=== PATIENT | female | born 1960 | race Caucasian/White ===

== ENCOUNTER 2018-02-03 17:24 | Inpatient (IN) | payer OTHER ==
[~2018-02-03] VITALS: Ht 165.1 cm; Wt 80.5 kg
[~2018-02-03 17:24] MED LIST: ADVA250A INH; DIAZ5 PO; LEVO.1 PO; LISI-515 PO; LORA-400 PO; MONT10TA2 PO; PRIL20TA2; SIMV40TA PO; VENTAER INH; VOLT100T
[2018-02-03 22:24] VITALS: BP 148/82; PULSE 100; RESP 16; TEMP 98.9; O2SAT 95
[2018-02-03] MEDS ORDERED: MAGNESIUM HYDROXIDE SUSP 30 ML CUP PO PRN (22:45)
[2018-02-03] MEDS ORDERED: LACTULOSE SYRUP 20 GM/30 ML CUP PO PRN (22:45)
[2018-02-03] MEDS ORDERED: DIAZEPAM 5 MG TAB PO PRN (22:45)
[2018-02-03] MEDS ORDERED: ALBUTEROL SULFATE 90 MCG/ACT HFA 8 GM INHALER INH PRN (22:45)
[2018-02-03] MEDS ORDERED: MORPHINE SULFATE 2 MG/ML INJ IV PUSH PRN (22:45)
[2018-02-03] MEDS ORDERED: NALOXONE HCL 0.4 MG/ML AMP IV PUSH PRN (22:45)
[2018-02-03] MEDS ORDERED: SENNOSIDES 8.6 MG TAB PO PRN (22:45)
[2018-02-03] MEDS ORDERED: BISACODYL 10 MG SUPP RECTAL PRN (22:45)
[2018-02-03] MEDS ORDERED: ONDANSETRON HCL 4 MG/2 ML VIAL IVP PRN (22:45)
[2018-02-03] MEDS ORDERED: SODIUM CHLORIDE 0.9% FLUSH 10 ML FLUSH IV FLUSH PRN (22:45)
[2018-02-03 23:00] VITALS: PULSE 100
--- NOTE | 2018-02-03 23:00 | HHI.HP ---
HPI Service CP Hospitalists Primary Care Physician Unknown Admission Diagnosis colitis GI bleed ,arrhythmia Chief Complaint: abdominal pain diarrhea blood stool Travel History International Travel<30 Days: No Contact w/Intl Traveler <30 Da: No Traveled to Known Affected Are: No History of Present Illness 58-year-old female with history of hypertension and COPD presents emergency department for evaluation of acute onset lower abdominal pain and cramping this morning with associated hematochezia. Patient has been nauseous and vomiting as well. Pain is moderate in severity, worse prior to bowel movement. Patient denies any history of colitis or diverticulitis. No history of trauma. Denies any fever or chills. Patient does take aspirin daily, no other anticoagulation therapy. She has no other symptoms to report at this time. Patient was noted to have significant irregular heart rate ? atrail fib started in er in [place] on Cardiazem bolus and then drip which converted to sinus ,alos had CT scan showed thick transverse colon consistent with colitis. Patient sent for admission. Patient has been feeling good up to today. Review of Systems Gastrointestinal: COMPLAINS OF: Abdominal pain, Black stools, Bloody stools, BRB per rectum, Diarrhea, Nausea Past Family Social History Past Medical History copd,hyperlipidemia,hypertension,hypothyroid Past Surgical History urethral repair Reported Medications valium 5mg tid,claritin,[id number] ventolin 2puff q 4 h advair diskis 250/50 bid simvastatin 40 volteran Allergies: Coded Allergies: Penicillins (Verified Allergy, Unknown, Shortness of Breath, 02/03/18) cephapirin (Verified Allergy, Unknown, Hives, 02/03/18) doxycycline (Verified Allergy, Unknown, Hives, 02/03/18) iodine (Verified Allergy, Unknown, 02/03/18) niacin (Verified Allergy, Unknown, Rash, 02/03/18) Social History NS,ND Physical Exam Vital Signs Vital Signs Date Time Temp Pulse Resp B/P (MAP) Pulse Ox O2 Delivery O2 Flow Rate FiO2 02/03/18 22:24 98.9 100 16 148/82 (104) 95 Physical Exam GENERAL: This is a well-nourished, well-developed patient, in no apparent distress. SKIN: No rashes, ecchymoses or lesions. Cool and dry. HEAD: Atraumatic. Normocephalic. No temporal or scalp tenderness. EYES: Pupils equal round and reactive. Extraocular motions intact. No scleral icterus. No injection or drainage. ENT: Nose without bleeding, purulent drainage or septal hematoma. Throat without erythema, tonsillar hypertrophy or exudate. Uvula midline. Airway patent. NECK: Trachea midline. No JVD or lymphadenopathy. Supple, nontender, no meningeal signs. CARDIOVASCULAR: Regular rate and rhythm without murmurs, gallops, or rubs. RESPIRATORY: Clear to auscultation. Breath sounds equal bilaterally. No wheezes , rales, or rhonchi. GASTROINTESTINAL: Abdomen soft, mild-tender, nondistended. No hepato- splenomegaly, or palpable masses. No guarding. MUSCULOSKELETAL: Extremities without clubbing, cyanosis, or edema. No joint tenderness, effusion, or edema noted. No calf tenderness. Negative Homans sign bilaterally. NEUROLOGICAL: Awake and alert. Cranial nerves II through XII intact. Motor and sensory grossly within normal limits. Five out of 5 muscle strength in all muscle groups. Normal speech. Laboratory reviewed from ER no acute changes some elevation WBC Imaging CT -thick transverse colon suggesting colitis ?renal cyst Course in er in [place] had rapid heart rate ?a fib vs tachycardia started on cardiazem bolus then drip now sinus Caprini VTE Risk Assessment Caprini VTE Risk Assessment: Mod/High Risk (score >= 2) Caprini Risk Assessment Model Point Value = 1 Point Value = 2 Point Value = 3 Point Value = 5 Age 41-60 Minor surgery BMI > 25 kg/m2 Swollen legs Varicose veins or History of unexplained or recurrent spontaneous Oral contraceptives or hormone replacement Sepsis (< 1 month) Serious lung disease, including pneumonia (< 1 month) Abnormal pulmonary function Acute myocardial infarction Congestive heart failure (< 1 month) History of inflammatory bowel disease Medical patient at bed rest Age 61-74 Arthroscopic surgery Major open surgery (> 45 min) Laparoscopic surgery (> 45 min) Malignancy Confined to bed (> 72 hours) Immobilizing plaster cast Central venous access Age >= 75 History of VTE Family history of VTE Factor V Leiden Prothrombin [id number] Lupus anticoagulant Anticardiolipin antibodies Elevated serum homocysteine Heparin-induced thrombocytopenia Other congenital or acquired thrombophilia Stroke (< 1 month) Elective arthroplasty Hip, pelvis, or leg fracture Acute spinal cord injury (< 1 month) Prophylaxis Regimen Total Risk Factor Score Risk Level Prophylaxis Regimen 0-1 Low Early ambulation 2 Moderate Order ONE of the following: *Sequential Compression Device (SCD) *Heparin 5000 units SQ BID 3-4 Higher Order ONE of the following medications: *Heparin 5000 units SQ TID *Enoxaparin/Lovenox 40 mg SQ daily (WT < 150 kg, CrCl > 30 mL/min) *Enoxaparin/Lovenox 30 mg SQ daily (WT < 150 kg, CrCl > 10-29 mL/min) *Enoxaparin/Lovenox 30 mg SQ BID (WT < 150 kg, CrCl > 30 mL/min) AND/OR *Sequential Compression Device (SCD) 5 or more Highest Order ONE of the following medications: *Heparin 5000 units SQ TID (Preferred with Epidurals) *Enoxaparin/Lovenox 40 mg SQ daily (WT < 150 kg, CrCl > 30 mL/min) *Enoxaparin/Lovenox 30 mg SQ daily (WT < 150 kg, CrCl > 10-29 mL/min) *Enoxaparin/Lovenox 30 mg SQ BID (WT < 150 kg, CrCl > 30 mL/min) AND *Sequential Compression Device (SCD) Assessment and Plan Problem List: (1) Abdominal pain ICD Codes: R10.9 - Unspecified abdominal pain Plan: CT suggests colitis with slight elevation WBC start levaquin GI consult IV fluid NPO for now (2) Blood in stool ICD Codes: K92.1 - Melena Status: Acute Plan: IV protonix follow cbc GI consult (3) Arrhythmia ICD Codes: I49.9 - Cardiac arrhythmia, unspecified Plan: will monitor now in sinus off cardiazem (4) COPD (chronic obstructive pulmonary disease) ICD Codes: J44.9 - Chronic obstructive pulmonary disease, unspecified Plan: continue home meds (5) Hypertension ICD Codes: I10 - Essential (primary) hypertension Plan: continue home meds Assessment and Plan further plan as case develops Code Status full Discussed Condition With patient Physician Certification 2 Midnight Certification Type: Admission for Inpatient Services Order for Inpatient Services The services are ordered in accordance with Medicare regulations or non- Medicare payer requirements, as applicable. In the case of services not specified as inpatient-only, they are appropriately provided as inpatient services in accordance with the 2-midnight benchmark. Estimated LOS (days): 3 3 days is the estimated time the patient will need to remain in the hospital, assuming treatment plan goals are met and no additional complications. Post-Hospital Plan: Not yet determined Fox Ivory MD Feb 03, 2018 23:00
[2018-02-03] MEDS: ACETAMINOPHEN 325 MG TAB PO PRN (23:25)
[2018-02-03] MEDS: PANTOPRAZOLE SODIUM 40 MG VIAL IV PUSH SCH (23:27)
[2018-02-03] MEDS: LEVOFLOXACIN 500 MG PREMIX INJ 100 ML IV SCH (23:33)
[2018-02-03] MEDS: SODIUM CHLOR 0.45% 1000 ML INJ 1,000 ML IV SCH (23:33)
[2018-02-03 23:41] VITALS: BP 142/77; PULSE 99; RESP 16; O2SAT 94
[2018-02-04] VITALS (29 sets, daily range): BP systolic 122–154; BP diastolic 45–98; PULSE 73–102; RESP 16–19; TEMP 98.5–99.4; O2SAT 95–99
[2018-02-04] MEDS: ACETAMINOPHEN 325 MG TAB PO PRN ×2 (03:53→09:03)
[2018-02-04] MEDS: LEVOTHYROXINE SODIUM 100 MCG TAB PO SCH (06:02)
[2018-02-04 07:07] LABS: ALBUMIN 3.5 GM/DL (3.4-5.0); AST (GOT) 10 U/L (15-37); BICARBONATE 26.7 MEQ/L (21.0-32.0); BLOOD UREA NITROGEN 8 MG/DL (7-18); CALCIUM 8.3 MG/DL (8.5-10.1); CHLORIDE 108 MEQ/L (98-107); GLOMERULAR FILTRATION RATE 86 ML/MIN (>89); GLUCOSE,RANDOM 122 MG/DL (74-106); SODIUM (NA) 142 MEQ/L (136-145)
[2018-02-04 07:09] LABS: AUTOMATED NEUTROPHIL # 8.6 TH/MM3 (1.8-7.7); BASOPHIL % 0.3 % (0.0-2.0); EOSINOPHIL # 0.1 TH/MM3 (0-0.4); EOSINOPHIL % 1.1 % (0.0-4.0); HEMOGLOBIN 13.1 GM/DL (11.6-15.3); LYMPH % 12.6 % (9.0-44.0); LYMPHOCYTE # 1.3 TH/MM3 (1.0-4.8); MEAN CORPUSCULAR HEMOGLOBIN 30.6 PG (27.0-34.0); MEAN CORPUSCULAR HGB CONC 33.6 % (32.0-36.0); MEAN PLATELET VOLUME 11.2 FL (7.0-11.0); MONO % 6.2 % (0.0-8.0); MONOCYTE # 0.7 TH/MM3 (0-0.9); NEUT % 79.8 % (16.0-70.0); PLATELET COUNT 191 TH/MM3 (150-450); RED BLOOD COUNT 4.29 MIL/MM3 (4.00-5.30); RED CELL DISTRIBUTION WIDTH 13.6 % (11.6-17.2); WHITE BLOOD COUNT 10.7 TH/MM3 (4.0-11.0)
[2018-02-04 07:18] LABS: ALKALINE PHOSPHATASE 47 U/L (45-117); ALT (GPT) 19 U/L (10-53); TOTAL BILIRUBIN ADULT 0.8 MG/DL (0.2-1.0); TOTAL PROTEIN 6.6 GM/DL (6.4-8.2)
[2018-02-04] MEDS: DOCUSATE SODIUM 50 MG/SENNA 8.6 MG TAB PO SCH ×2 (09:00→21:00)
[2018-02-04] MEDS: LISINOPRIL 20 MG TAB PO SCH (09:03)
[2018-02-04] MEDS: BUDESONIDE-FORMOTEROL 160/4.5 MCG INHALER INH SCH (09:03)
[2018-02-04] MEDS: SODIUM CHLORIDE 0.9% FLUSH 10 ML FLUSH IV FLUSH SCH ×2 (09:03→21:51)
--- NOTE | 2018-02-04 10:26 | PD.CONS ---
HPI History of Present Illness This is a 58 year old F with PMH significant for COPD who presented to [facility] in [place] with complaints of lower abdominal pain, nausea, vomiting, and hematochezia. Pt reports symptoms began early Sunday morning, went out to eat Sunday night had shrimp, woke up at 3 am with severe lower abdominal pain and the urgency to have a BM. States started having diarrhea and shortly after also began vomiting. The diarrhea became increasingly bloody to the point where it was mostly blood she was passing, last episode was around 4 am this morning. She is unsure of hematemesis or coffee ground emesis, states she was vomiting in the dark so did not see it. Last vomited yesterday afternoon, currently on nausea medication which seems to be helping. Of note, states had a 6 hr occurrence of nausea, vomiting and diarrhea 3 weeks ago after eating shrimp, was not seen by doctor for this. At present her only complaint is intermittent abdominal cramping with excessive flatus. Denies recent weight loss, history of GIB, blood thinners, recent antibiotics, recent travel, history of C. Diff. Does admit to running low grade fevers at home with some chills. Rare ETOH. Denies smoking. Last EGD was 25-30 years ago, indication was dysphagia she was later found to have a nodular thyroid which she was told is the cause. Still with some dysphagia but states chronic and endocrinology is following. Last colonoscopy was 5-7 years ago and states normal exam. (Amrita Agee) PFSH Past Medical History COPD Urethra diverticulum Past Surgical History EGD Colonoscopy Multiple urethral surgeries Bladder sling (Amrita Agee) Coded Allergies: Penicillins (Verified Allergy, Unknown, Shortness of Breath, 02/03/18) cephapirin (Verified Allergy, Unknown, Hives, 02/03/18) doxycycline (Verified Allergy, Unknown, Hives, 02/03/18) iodine (Verified Allergy, Unknown, 02/03/18) niacin (Verified Allergy, Unknown, Rash, 02/03/18) Social History Rare ETOH Denies smoking Denies illicit drug use (Amrita Agee) Review of Systems Gastrointestinal: COMPLAINS OF: Abdominal pain, Bloody stools, Diarrhea, Nausea , Vomiting, Difficulty Swallowing, DENIES: Black stools, Constipation, Heartburn (Amrita Agee) GI Exam Vitals I&O Vital Signs Date Time Temp Pulse Resp B/P (MAP) Pulse Ox O2 Delivery O2 Flow Rate FiO2 02/04/18 07:55 98.5 73 19 136/45 (75) 96 02/04/18 06:00 86 02/04/18 05:00 98 02/04/18 04:02 102 16 144/78 (100) 95 02/04/18 04:00 98 02/04/18 03:00 83 02/04/18 02:00 102 02/04/18 01:00 88 02/04/18 00:00 88 02/03/18 23:41 99 16 142/77 (98) 94 02/03/18 23:00 100 02/03/18 22:24 98.9 100 16 148/82 (104) 95 I/O 02/03/18 02/03/18 02/03/18 02/04/18 02/04/18 02/04/18 07:00 15:00 23:00 07:00 15:00 23:00 Intake Total 50 ml Output Total 300 ml Balance -250 ml Intake Oral 50 ml Output Urine Total 300 ml # Bowel Movements 3 Laboratory Test 02/04/18 05:53 White Blood Count 10.7 TH/MM3 Red Blood Count 4.29 MIL/MM3 Hemoglobin 13.1 GM/DL Hematocrit 39.0 % Mean Corpuscular Volume 91.0 FL Mean Corpuscular Hemoglobin 30.6 PG Mean Corpuscular Hemoglobin Concent 33.6 % Red Cell Distribution Width 13.6 % Platelet Count 191 TH/MM3 Mean Platelet Volume 11.2 FL Neutrophils (%) (Auto) 79.8 % Lymphocytes (%) (Auto) 12.6 % Monocytes (%) (Auto) 6.2 % Eosinophils (%) (Auto) 1.1 % Basophils (%) (Auto) 0.3 % Neutrophils # (Auto) 8.6 TH/MM3 Lymphocytes # (Auto) 1.3 TH/MM3 Monocytes # (Auto) 0.7 TH/MM3 Eosinophils # (Auto) 0.1 TH/MM3 Basophils # (Auto) 0.0 TH/MM3 CBC Comment DIFF FINAL Differential Comment Blood Urea Nitrogen 8 MG/DL Creatinine 0.70 MG/DL Random Glucose 122 MG/DL Total Protein 6.6 GM/DL Albumin 3.5 GM/DL Calcium Level 8.3 MG/DL Alkaline Phosphatase 47 U/L Aspartate Amino Transf (AST/SGOT) 10 U/L Alanine Aminotransferase (ALT/SGPT) 19 U/L Total Bilirubin 0.8 MG/DL Sodium Level 142 MEQ/L Potassium Level 4.0 MEQ/L Chloride Level 108 MEQ/L Carbon Dioxide Level 26.7 MEQ/L Anion Gap 7 MEQ/L Estimat Glomerular Filtration Rate 86 ML/MIN Thyroid Stimulating Hormone 3rd Gen 2.670 uIU/ML Physical Examination HEENT: Normocephalic; atraumatic CHEST: Even/unlabored CARDIAC: RRR ABDOMEN: Soft, nondistended, nontender; bowel sounds active EXTREMITIES: No clubbing, cyanosis, or edema. SKIN: Normal; no rash; no jaundice. 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 (Amrita Agee) Assessment and Plan Plan Assessment: - Hematochezia- began early Sunday morning- blood seemed to be increasing with diarrhea- last episode at 4 am this morning. H/H stable. Denies history of GIB, blood thinners, history of C. Diff, recent abx, recent travel, sick contacts, weight loss. Last colonoscopy 5-7 years ago, states normal exam CT abdomen and pelvis W/O IV contrast (02/03) --> Thickening of the mid and distal aspect of the transverse colon, likely secondary to colitis. Colonic diverticula in the descending and sigmoid regions without associated inflammatory change. - Nausea, vomiting- began at same time as diarrhea, last episode yesterday afternoon - Abdominal pain- lower and cramping, worse prior to BMs, now associated with excessive flatus - Dysphagia- Chronic- has been told it is secondary to her nodular thyroid, followed by endocrinology. Last EGD 25-30 years ago, normal exam - Low grade fevers at home- states around 100 (+) chills - Acid reflux- Well controlled with Omeprazole - Reports of a-fib RVR at ER in [place]- now NSR after cardizem gtt - CT findings of low density mass on right kidney- ?cyst - per attending - Impaired renal function- per attending Plan: Colonoscopy tomorrow Obtain consent Clear liquids today Magnesium Citrate prep NPO after MN Stool studies Monitor H/H Nausea medication PRN IVF Further recommendations based on findings of above Pt has been seen and examined by myself and Dr. Conley and this note is written on his behalf (Amrita Agee) Physician Comments Patient seen and examined Agree with above Continue with current supportive care Monitor lab Plan for colonoscopy tomorrow (Yahir Conley MD) Amrita Agee Feb 04, 2018 10:26 Yahir Conley MD Feb 04, 2018 22:29
[2018-02-04] MEDS: SODIUM CHLOR 0.45% 1000 ML INJ 1,000 ML IV SCH (12:20)
[2018-02-04] MEDS ORDERED: MAGNESIUM CITRATE SOLN 300 ML BTL PO ONE ×2 (16:00→18:00)
[2018-02-04] MEDS: ACETAMINOPHEN/HYDROcodone 325 MG/5 MG TAB PO PRN (16:31)
--- NOTE | 2018-02-04 18:22 | HHI.PR ---
Subjective Remarks No BM since early this AM. Pt denies further rectal bleeding. NO c/o abdominal pain. Objective Vitals Vital Signs Date Time Temp Pulse Resp B/P (MAP) Pulse Ox O2 Delivery O2 Flow Rate FiO2 02/04/18 15:24 99.4 91 19 122/67 (85) 98 02/04/18 14:00 84 02/04/18 13:00 82 02/04/18 12:00 82 02/04/18 11:12 99.3 84 17 146/74 (98) 99 02/04/18 11:00 88 02/04/18 10:00 84 02/04/18 09:00 78 02/04/18 08:00 76 02/04/18 07:55 98.5 73 19 136/45 (75) 96 02/04/18 07:00 80 02/04/18 06:00 86 02/04/18 05:00 98 02/04/18 04:02 102 16 144/78 (100) 95 02/04/18 04:00 98 02/04/18 03:00 83 02/04/18 02:00 102 02/04/18 01:00 88 02/04/18 00:00 88 02/03/18 23:41 99 16 142/77 (98) 94 02/03/18 23:00 100 02/03/18 22:24 98.9 100 16 148/82 (104) 95 Result Diagram: 02/04/18 0553 02/04/18 0553 Other Results Laboratory Tests Test 02/04/18 05:53 White Blood Count 10.7 TH/MM3 Red Blood Count 4.29 MIL/MM3 Hemoglobin 13.1 GM/DL Hematocrit 39.0 % Mean Corpuscular Volume 91.0 FL Mean Corpuscular Hemoglobin 30.6 PG Mean Corpuscular Hemoglobin Concent 33.6 % Red Cell Distribution Width 13.6 % Platelet Count 191 TH/MM3 Mean Platelet Volume 11.2 FL Neutrophils (%) (Auto) 79.8 % Lymphocytes (%) (Auto) 12.6 % Monocytes (%) (Auto) 6.2 % Eosinophils (%) (Auto) 1.1 % Basophils (%) (Auto) 0.3 % Neutrophils # (Auto) 8.6 TH/MM3 Lymphocytes # (Auto) 1.3 TH/MM3 Monocytes # (Auto) 0.7 TH/MM3 Eosinophils # (Auto) 0.1 TH/MM3 Basophils # (Auto) 0.0 TH/MM3 CBC Comment DIFF FINAL Differential Comment Blood Urea Nitrogen 8 MG/DL Creatinine 0.70 MG/DL Random Glucose 122 MG/DL Total Protein 6.6 GM/DL Albumin 3.5 GM/DL Calcium Level 8.3 MG/DL Alkaline Phosphatase 47 U/L Aspartate Amino Transf (AST/SGOT) 10 U/L Alanine Aminotransferase (ALT/SGPT) 19 U/L Total Bilirubin 0.8 MG/DL Sodium Level 142 MEQ/L Potassium Level 4.0 MEQ/L Chloride Level 108 MEQ/L Carbon Dioxide Level 26.7 MEQ/L Anion Gap 7 MEQ/L Estimat Glomerular Filtration Rate 86 ML/MIN Thyroid Stimulating Hormone 3rd Gen 2.670 uIU/ML Imaging CT Abd/pelvis without IV contrast (02/03/18): - Thickening of the mid and distal aspect of the transverse colon. This is likely secondary to colitis - Colonic diverticula in the descending and sigmoid regions without associated inflammatory change. - 2.3cm low-density mass at the lateral right kidney likely related to a cyst although is nonspecific on the noncontrasted CT examination Objective Remarks General: NAD, AAOx3 Chest: CTA Cardiac: Regular Abd: +BS, soft ND/NT Ext: No edema A/P Problem List: (1) Abdominal pain ICD Codes: R10.9 - Unspecified abdominal pain Status: Acute Plan: Abdominal pain N/V/D GIB/Bloody diarrhea - comgmt with GI - Pt is a 58 y/o female with COPD who presented to [facility] in [place] with complaints of lower abdominal pain, nausea, vomiting, and hematochezia which began leadlighter on 02/03. - Pt reportedly went out to eat Sunday night had shrimp, then woke up at 3 am with severe lower abdominal pain and started having diarrhea and shortly after also began vomiting. - The diarrhea became increasingly bloody, last episode was around 4 am on . - CT Abd/pelvis without IV contrast (02/03/18) --> Thickening of the mid and distal aspect of the transverse colon, likely secondary to colitis, colonic diverticula in the descending and sigmoid regions without associated inflammatory change, 2.3cm low-density mass at the lateral right kidney likely related to a cyst although is nonspecific on the noncontrasted CT examination - Pt was started on Protonix 40mg IV daily - Pt is planned for evaluation with colonoscopy tomorrow - Stool studies are ordered - Pt was started on Levaquin IV - IVF - Supportive care GERD, chronic - PPI Arrhythmia - Pt had reported episode of a-fib RVR at ER in [place] and was given IV Cardizem - Pt has been in NSR after cardizem COPD, chronic - Cont. home meds, Singulair, Symbicort, ProAir PRN HTN, chronic - Pt reportedly takes Lisinopril 20mg at home, this has been continued - BP more stable today Hypothyroidism, chronic - Pt is on Synthroid 100mcg daily Hyperlipidemia, chronic - Pt is on Simvastatin 40mg HS Abnormal CT findings of low density mass on right kidney ?cyst - Pt will need outpt followup with her PCP for monitoring. (2) Blood in stool ICD Codes: K92.1 - Melena Status: Acute Plan: - see above (3) COPD (chronic obstructive pulmonary disease) ICD Codes: J44.9 - Chronic obstructive pulmonary disease, unspecified Status: Chronic (4) Hypertension ICD Codes: I10 - Essential (primary) hypertension Status: Chronic Assessment and Plan Patient examined. Assessment and plan formulated with Colleen Romano PA-C. I agree with the above. Pt comfortable at the time of my visit and sipping Magnesium Citrate. NO BM since approximately 4AM. No rectal bleeding or abdominal pain today. All questions from pt and son at bedside answered to the best of my ability. Pt denies personal or family history of GI malignancy/or inflammatory bowel disease. Problem Qualifiers (1) Abdominal pain: Qualified Codes: R10.9 - Unspecified abdominal pain (2) COPD (chronic obstructive pulmonary disease): (3) Hypertension: Qualified Codes: I10 - Essential (primary) hypertension Colleen Romano Feb 04, 2018 18:22 Christ Sanabria DO Feb 04, 2018 23:02
[2018-02-04] MEDS: MONTELUKAST SODIUM 10 MG TAB PO SCH (21:00)
[2018-02-04] MEDS: LEVOFLOXACIN 500 MG PREMIX INJ 100 ML IV SCH (21:50)
[2018-02-04] MEDS: PANTOPRAZOLE SODIUM 40 MG VIAL IV PUSH SCH (22:22)
[2018-02-04] MEDS ORDERED: LACTATED RINGER'S 1000 ML IV PRN (22:45)
[2018-02-04] MEDS ORDERED: CHLORHEXIDINE GLUCONATE 2 % 1 PACK (2 CLOTHS) TOPICAL PRN (22:45)
[2018-02-04] MEDS ORDERED: SODIUM CHLORID 0.9% 500 ML IV PRN (22:45)
[2018-02-05] VITALS (27 sets, daily range): BP systolic 109–144; BP diastolic 68–95; PULSE 72–144; RESP 16–19; TEMP 98.1–98.9; O2SAT 95–99
[2018-02-05] MEDS: BUDESONIDE-FORMOTEROL 160/4.5 MCG INHALER INH SCH ×3 (00:05→21:30)
[2018-02-05] MEDS: SODIUM CHLOR 0.45% 1000 ML INJ 1,000 ML IV SCH ×2 (00:06→15:08)
[2018-02-05] MEDS: LEVOTHYROXINE SODIUM 100 MCG TAB PO SCH (06:00)
[2018-02-05] MEDS ORDERED: METOPROLOL TARTRATE 5 MG/5 ML VIAL IV PUSH ONE (08:15)
[2018-02-05 08:23] LABS: AUTOMATED NEUTROPHIL # 8.3 TH/MM3 (1.8-7.7); BASOPHIL % 0.4 % (0.0-2.0); EOSINOPHIL # 0.2 TH/MM3 (0-0.4); EOSINOPHIL % 1.7 % (0.0-4.0); HEMATOCRIT 39.9 % (35.0-46.0); HEMOGLOBIN 13.5 GM/DL (11.6-15.3); LYMPH % 13.6 % (9.0-44.0); LYMPHOCYTE # 1.4 TH/MM3 (1.0-4.8); MEAN CELL VOLUME 89.9 FL (80.0-100.0); MEAN CORPUSCULAR HEMOGLOBIN 30.4 PG (27.0-34.0); MEAN CORPUSCULAR HGB CONC 33.9 % (32.0-36.0); MEAN PLATELET VOLUME 10.4 FL (7.0-11.0); MONO % 5.5 % (0.0-8.0); MONOCYTE # 0.6 TH/MM3 (0-0.9); NEUT % 78.8 % (16.0-70.0); PLATELET COUNT 201 TH/MM3 (150-450); RED BLOOD COUNT 4.44 MIL/MM3 (4.00-5.30); RED CELL DISTRIBUTION WIDTH 13.1 % (11.6-17.2); WHITE BLOOD COUNT 10.5 TH/MM3 (4.0-11.0)
[2018-02-05] MEDS: DOCUSATE SODIUM 50 MG/SENNA 8.6 MG TAB PO SCH ×2 (08:25→21:00)
[2018-02-05] MEDS: SODIUM CHLORIDE 0.9% FLUSH 10 ML FLUSH IV FLUSH SCH ×2 (08:25→21:29)
[2018-02-05] MEDS: LISINOPRIL 20 MG TAB PO SCH (08:26)
[2018-02-05] MEDS ORDERED: PROPOFOL 200 MG/20 ML AMP IV ONE (12:00)
[2018-02-05] MEDS ORDERED: LIDOCAINE HCL 1% PF 5 ML SYRINGE OTHER ONE (12:00)
--- NOTE | 2018-02-05 13:16 | PD.PROCEDR ---
GI Procedure PROCEDURE PERFORMED Colonoscopy with biopsy INDICATION FOR PROCEDURE Rectal bleeding PROCEDURE: The procedure, risks and benefits were discussed with Ms. Caldwell and informed consent was obtained. Anesthesia sedated her with Diprivan. She was placed in the left lateral decubitus position. Colonoscopy: The Pentax videoscope was introduced through the rectum and advanced to cecum where the ileocecal valve and appendiceal orifice were identified. Retroflexion was performed in the rectum. Colonic prep was good FINDINGS: Colonic withdrawal time greater than 6 minutes. As the scope was slowly withdrawn colonic mucosa was carefully inspected the patient was noted to have significantly edematous friable erythemic mucosa with ulcerations and erosions from the distal transverse through the splenic flexure and the descending colon this is most suggestive of ischemic colitis multiple biopsies were taken patient was also noted to have moderately severe diverticulosis of the sigmoid region retroflexion in the rectum and rectal examination otherwise unremarkable ESTIMATED BLOOD LOSS: None SPECIMENS REMOVED: Colon biopsy COMPLICATIONS: None IMPRESSION: Acute colitis probably ischemic PLAN: Await biopsies Advance diet The patient is stable patient may be discharged from a GI standpoint Follow-up with GI in 2-4 weeks High-fiber diet Yahir Conley MD Feb 05, 2018 13:16
[2018-02-05] MEDS: ACETAMINOPHEN/HYDROcodone 325 MG/5 MG TAB PO PRN (15:08)
--- NOTE | 2018-02-05 17:24 | HHI.PR ---
Subjective Remarks Pt had episode of sustained atrial flutter with RVR earlier in the morning. Episode resolved after receiving 5mg IV metoprolol. Pt underwent colonoscopy. Pt denies abdominal pain, rectal bleeding, or n/v. pt is eager for PO intake. Objective Vitals Vital Signs Date Time Temp Pulse Resp B/P (MAP) Pulse Ox O2 Delivery O2 Flow Rate FiO2 02/05/18 16:10 81 02/05/18 15:36 81 02/05/18 15:09 98.4 82 16 144/87 (106) 96 02/05/18 14:03 81 02/05/18 13:56 89 02/05/18 13:38 98.1 75 19 143/87 (105) 95 02/05/18 13:09 97.2 75 20 118/66 (83) 95 02/05/18 12:55 97.2 75 20 112/65 (81) 96 02/05/18 10:00 98 02/05/18 09:00 86 02/05/18 08:40 79 02/05/18 08:25 132 16 129/79 (96) 96 02/05/18 08:00 144 02/05/18 07:00 77 02/05/18 06:00 82 02/05/18 05:00 80 02/05/18 04:00 78 02/05/18 03:00 98.9 98 16 129/71 (90) 98 02/05/18 03:00 77 02/05/18 02:00 72 02/05/18 01:00 79 02/05/18 00:00 98 02/04/18 23:00 99 02/04/18 23:00 98.5 99 16 139/72 (94) 97 02/04/18 22:00 84 02/04/18 21:00 98 02/04/18 20:00 102 02/04/18 19:00 98.7 92 18 154/98 (116) 98 02/04/18 19:00 92 02/04/18 18:00 90 02/05/18 02/05/18 02/06/18 15:00 23:00 07:00 # Voids 1 Result Diagram: 02/05/18 0805 02/04/[address] Abd/pelvis without IV contrast (02/03/18): - Thickening of the mid and distal aspect of the transverse colon. This is likely secondary to colitis - Colonic diverticula in the descending and sigmoid regions without associated inflammatory change. - 2.3cm low-density mass at the lateral right kidney likely related to a cyst although is nonspecific on the noncontrasted CT examination Objective Remarks General: NAD, AAOx3 Chest: CTA Cardiac: Regular Abd: +BS, soft ND/NT Ext: No edema A/P Problem List: (1) Abdominal pain ICD Codes: R10.9 - Unspecified abdominal pain Status: Acute Plan: Abdominal pain N/V/D GIB/Bloody diarrhea - comgmt with GI - Pt is a 58 y/o female with COPD who presented to [facility] in [place] with complaints of lower abdominal pain, nausea, vomiting, and hematochezia which began clark driver on 02/03. - Pt reportedly went out to eat Sunday night had shrimp, then woke up at 3 am with severe lower abdominal pain and started having diarrhea and shortly after also began vomiting. - The diarrhea became increasingly bloody, last episode was around 4 am on . - CT Abd/pelvis without IV contrast (02/03/18) --> Thickening of the mid and distal aspect of the transverse colon, likely secondary to colitis, colonic diverticula in the descending and sigmoid regions without associated inflammatory change, 2.3cm low-density mass at the lateral right kidney likely related to a cyst although is nonspecific on the noncontrasted CT examination - Pt was started on Protonix 40mg IV daily - Colonoscopy (02/05) --> findings c/w ischemic colitis - C. Dif negative, other stool studies pending - levaquin - IVFs, stop 02/06 - IV prontonix - supportive care - DVT prophylaxis GERD, chronic - PPI Arrhythmia - Pt had reported episode of a-fib RVR at ER in [place] and was given IV Cardizem - Pt developed A. Flutter with RVR which resolved with 5mg IV metoprolol - start PO metoprolol 12.5mg BID - obtain echocardiogram - obtain holter - request Cardiology consult - anticoagulation? Will d/w Cardiology COPD, chronic - Cont. home meds, Singulair, Symbicort, ProAir PRN HTN, chronic - Pt reportedly takes Lisinopril 20mg at home, this has been continued - BP more stable today Hypothyroidism, chronic - Pt is on Synthroid 100mcg daily Hyperlipidemia, chronic - Pt is on Simvastatin 40mg HS Abnormal CT findings of low density mass on right kidney ?cyst - Pt will need outpt followup with her PCP for monitoring. (2) Blood in stool ICD Codes: K92.1 - Melena Status: Acute Plan: - see above (3) COPD (chronic obstructive pulmonary disease) ICD Codes: J44.9 - Chronic obstructive pulmonary disease, unspecified Status: Chronic (4) Hypertension ICD Codes: I10 - Essential (primary) hypertension Status: Chronic Problem Qualifiers (1) Abdominal pain: Qualified Codes: R10.9 - Unspecified abdominal pain (2) COPD (chronic obstructive pulmonary disease): (3) Hypertension: Qualified Codes: I10 - Essential (primary) hypertension Christ Sanabria DO Feb 05, 2018 17:24
[2018-02-05] MEDS ORDERED: METOPROLOL SUCCINATE 25 MG EXTENDED RELEASE TAB PO SCH (17:30)
[2018-02-05] MEDS: MONTELUKAST SODIUM 10 MG TAB PO SCH (21:00)
[2018-02-05] MEDS: LEVOFLOXACIN 500 MG PREMIX INJ 100 ML IV SCH (21:28)
[2018-02-05] MEDS: PANTOPRAZOLE SODIUM 40 MG VIAL IV PUSH SCH (21:29)
[2018-02-06] VITALS (24 sets, daily range): BP systolic 101–154; BP diastolic 51–92; PULSE 66–86; RESP 16–20; TEMP 98.3–98.9; O2SAT 96–98
[2018-02-06] MEDS: SODIUM CHLOR 0.45% 1000 ML INJ 1,000 ML IV SCH (04:20)
[2018-02-06] MEDS: LEVOTHYROXINE SODIUM 100 MCG TAB PO SCH (05:34)
[2018-02-06 06:54] LABS: HEMATOCRIT 38.9 % (35.0-46.0); HEMOGLOBIN 12.9 GM/DL (11.6-15.3); MEAN CELL VOLUME 91.5 FL (80.0-100.0); MEAN CORPUSCULAR HEMOGLOBIN 30.3 PG (27.0-34.0); MEAN CORPUSCULAR HGB CONC 33.1 % (32.0-36.0); MEAN PLATELET VOLUME 11.2 FL (7.0-11.0); PLATELET COUNT 193 TH/MM3 (150-450); RED BLOOD COUNT 4.25 MIL/MM3 (4.00-5.30); RED CELL DISTRIBUTION WIDTH 13.5 % (11.6-17.2); WHITE BLOOD COUNT 8.1 TH/MM3 (4.0-11.0)
--- NOTE | 2018-02-06 07:55 | PD.CONS ---
HPI Consult Requested By Primary Care Physician Unknown History of Present Illness 58-year-old female with a past medical history of tachyarrhythmia, HTN, HLD, hypothyroidism, COPD who presented for abdominal pain and hematochezia. In the ED the patient was found to be in SVT, Valsalva was ineffective so she was given IV diltiazem with conversion to NSR. She was admitted for GI workup. Throughout admission she has been noted to go in and out of SVT, usually spontaneously, but yesterday required 5 mg IV metoprolol for conversion. She states that this tachycardia has been an ongoing problem, originally noted 3 years ago and followed by Dr. Jiménez in [place]. She reports a negative workup at that time including cardiac catheterization and echocardiogram. She states that they elected not to put her on any medication at that time. She continues to have intermittent episodes of palpitations, sometimes up to 10-15 times per month, no specific chest pain. Review of Systems Negative except as stated in the HPI Past Family Social History Allergies: Coded Allergies: Penicillins (Verified Allergy, Unknown, Shortness of Breath, 02/03/18) cephapirin (Verified Allergy, Unknown, Hives, 02/03/18) doxycycline (Verified Allergy, Unknown, Hives, 02/03/18) iodine (Verified Allergy, Unknown, 02/03/18) niacin (Verified Allergy, Unknown, Rash, 02/03/18) Past Medical History SVT COPD Hyperlipidemia Hypertension Hypothyroidism Colitis, probably ischemic Past Surgical History Urethral repair Reported Medications Reported Meds & Active Scripts Active Reported Valium (Diazepam) 5 Mg Tab 5 Mg PO TID PRN Claritin-D 24 HR (Loratadine-Pseudoephedrine 24 HR) 10-240 Mg Tab 1 Tab PO DAILY Lisinopril 20 Mg Tab 20 Mg PO DAILY Ventolin Hfa 18 GM Inh (Albuterol Sulfate) 90 Mcg/Act Aer 2 Puff INH Q4-6H PRN Advair Diskus Inh (Fluticasone-Salmeterol Inh) 250-50 Mcg/Blist Aer 1 Puff INH BID Rinse mouth after use. Simvastatin 40 Mg Tab 40 Mg PO HS Prilosec (Omeprazole Magnesium) 20 Mg Tab Voltaren-Xr (Diclofenac Sodium) 100 Mg Tab.er.24h Synthroid (Levothyroxine Sodium) 100 Mcg Tab 100 Mcg PO DAILY Singulair (Montelukast Sodium) 10 Mg Tab 10 Mg PO HS Active Ordered Medications Current Medications Medications (Trade) Dose Ordered Sig/Jhoana Route Start Time Stop Time Status Last Admin (Proair Hfa Inh) 2 puff Q6HR NEB PRN INH 02/03/18 22:45 (Valium) 5 mg TID PRN PO 02/03/18 22:45 (Synthroid) 100 mcg DAILY@0600 PO 02/04/18 06:00 02/06/18 05:34 (Prinivil) 20 mg DAILY PO 02/04/18 09:00 02/05/18 08:26 (Symbicort 160-4.5 Mcg Inh) 1 puff BID INH 02/04/18 09:00 02/05/18 21:30 (NS Flush) 2 ml UNSCH PRN IV FLUSH 02/03/18 22:45 (NS Flush) 2 ml BID IV FLUSH 02/04/18 09:00 02/05/18 21:29 (Zofran Inj) 4 mg Q6H PRN IVP 02/03/18 22:45 (Narcan Inj) 0.4 mg UNSCH PRN IV PUSH 02/03/18 22:45 (Francia-Colace) 1 tab BID PO 02/04/18 09:00 (Milk Of Magnesia Liq) 30 ml Q12H PRN PO 02/03/18 22:45 (Senokot) 17.2 mg Q12H PRN PO 02/03/18 22:45 (Dulcolax Supp) 10 mg DAILY PRN RECTAL 02/03/18 22:45 (Lactulose Liq) 30 ml DAILY PRN PO 02/03/18 22:45 (Protonix Inj) 40 mg Q24H IV PUSH 02/03/18 23:00 02/05/18 21:29 (Concord 5-325 Mg) 1 tab Q6H PRN PO 02/04/18 15:45 02/05/18 15:08 Lactated Ringer's 1,000 ml @ 30 mls/hr Q24H PRN IV 02/04/18 22:45 02/07/18 22:44 Sodium Chloride 500 ml @ 30 mls/hr [id number] PRN IV 02/04/18 22:45 02/07/18 22:44 (Chlorhexidine 2% Cloth) 3 pack HARP REPAIRER PRN TOPICAL 02/04/18 22:45 02/07/18 22:44 (Levaquin) 500 mg DAILY PO 02/06/18 09:00 (Singulair) 10 mg DAILY PO 02/06/18 09:00 (Lopressor) 25 mg Q12HR PO 02/06/18 09:00 Family History Reports father and siblings with irregular heartbeats and pacemaker Social History Non-smoker nondrinker Physical Exam Vital Signs Vital Signs Date Time Temp Pulse Resp B/P (MAP) Pulse Ox O2 Delivery O2 Flow Rate FiO2 02/06/18 07:29 98.6 74 16 126/74 (91) 98 02/06/18 05:00 71 02/06/18 04:00 70 02/06/18 03:00 98.9 73 18 122/65 (84) 97 02/06/18 03:00 69 02/06/18 02:00 68 02/06/18 01:00 72 02/06/18 00:00 66 02/05/18 23:00 98.7 74 16 110/72 (85) 99 02/05/18 23:00 74 02/05/18 22:00 80 02/05/18 21:00 75 02/05/18 20:00 75 02/05/18 19:00 98.4 73 18 109/68 (82) 97 02/05/18 19:00 73 02/05/18 18:39 139/95 (110) 02/05/18 18:00 80 02/05/18 17:00 84 02/05/18 16:10 81 02/05/18 15:36 81 02/05/18 15:09 98.4 82 16 144/87 (106) 96 02/05/18 14:03 81 02/05/18 13:56 89 02/05/18 13:38 98.1 75 19 143/87 (105) 95 02/05/18 13:09 97.2 75 20 118/66 (83) 95 02/05/18 12:55 97.2 75 20 112/65 (81) 96 02/05/18 10:00 98 02/05/18 09:00 86 02/05/18 08:40 79 02/05/18 08:25 132 16 129/79 (96) 96 02/05/18 08:00 144 Physical Exam GENERAL: Well-developed well-nourished. In no acute distress. NECK: No carotid bruits. No JVD. CARDIOVASCULAR: Regular rate and rhythm. No murmur appreciated. RESPIRATORY: No accessory muscle use. Clear to auscultation. Breath sounds equal bilaterally. MUSCULOSKELETAL: No clubbing or cyanosis. No edema. NEUROLOGICAL: Awake and alert. Normal speech. Laboratory Laboratory Tests Test 02/05/18 08:05 02/06/18 05:41 White Blood Count 10.5 8.1 Red Blood Count 4.44 4.25 Hemoglobin 13.5 12.9 Hematocrit 39.9 38.9 Mean Corpuscular Volume 89.9 91.5 Mean Corpuscular Hemoglobin 30.4 30.3 Mean Corpuscular Hemoglobin Concent 33.9 33.1 Red Cell Distribution Width 13.1 13.5 Platelet Count 201 193 Mean Platelet Volume 10.4 11.2 Neutrophils (%) (Auto) 78.8 Lymphocytes (%) (Auto) 13.6 Monocytes (%) (Auto) 5.5 Eosinophils (%) (Auto) 1.7 Basophils (%) (Auto) 0.4 Neutrophils # (Auto) 8.3 Lymphocytes # (Auto) 1.4 Monocytes # (Auto) 0.6 Eosinophils # (Auto) 0.2 Basophils # (Auto) 0.0 CBC Comment DIFF FINAL Differential Comment Date/Time Source Procedure Growth Status 02/04/18 20:30 Stool Stool Cryptosporidium Exam Pending Received 02/04/18 20:30 Stool Stool Giardia Antigen (AYDEE) Pending Received Result Diagram: 02/06/18 0541 02/04/18 0553 Assessment and Plan Assessment and Plan 58-year-old female with a probable history of SVT who is noted to have recurrent episodes of SVT during admission. Supraventricular tachycardia: Chronic, although patient is fairly symptomatic with episodes. Educated on Valsalva maneuvers. Will start with metoprolol 25 mg twice daily to see how this controls the patient's symptoms and recommend she follow-up with her nursery nurse, Dr. Jiménez, as outpatient. No further workup for this needed at this time. Hypertension: BP is well controlled on lisinopril, will decrease dose with addition of metoprolol. Discussed Condition With Patient seen with RN and Dr. Damico. Patrick Barraza Feb 06, 2018 07:55
[2018-02-06] MEDS ORDERED: LISI10TA3 PO (09:04)
[2018-02-06] MEDS ORDERED: METO25TA3 PO (09:04)
--- NOTE | 2018-02-06 09:07 | HHI.DCPOC ---
Discharge Care Plan Diagnosis: (1) Blood in stool (2) Arrhythmia Goals to Promote Your Health * To prevent worsening of your condition and complications * To maintain your health at the optimal level Directions to Meet Your Goals Take your medications as prescribed Follow your dietary instruction Follow activity as directed Keep your appointments as scheduled Take your immunizations and boosters as scheduled If your symptoms worsen call your PCP, if no PCP go to Urgent Care Center or Emergency Room Smoking is Dangerous to Your Health. Avoid second hand smoke Call the 24-hour hour crisis hotline for domestic abuse at Erika Ruelas Feb 06, 2018 09:07 Christ Sanabria DO Feb 12, 2018 13:18
[2018-02-06] MEDS: METOPROLOL TARTRATE 25 MG TAB PO SCH ×2 (09:10→21:51)
[2018-02-06] MEDS: LISINOPRIL 10 MG TAB PO SCH (09:10)
[2018-02-06] MEDS: LEVOFLOXACIN 500 MG TAB PO SCH (09:10)
[2018-02-06] MEDS: MONTELUKAST SODIUM 10 MG TAB PO SCH (09:10)
[2018-02-06] MEDS: SODIUM CHLORIDE 0.9% FLUSH 10 ML FLUSH IV FLUSH SCH ×2 (09:11→21:51)
[2018-02-06] MEDS: BUDESONIDE-FORMOTEROL 160/4.5 MCG INHALER INH SCH ×2 (09:11→21:52)
[2018-02-06] MEDS: DOCUSATE SODIUM 50 MG/SENNA 8.6 MG TAB PO SCH ×2 (09:11→21:00)
--- NOTE | 2018-02-06 11:59 | ECHRPT ---
Indication: AFIB/ALUTTER CONCLUSIONS The left ventricular systolic function is normal with an estimated ejection fraction in the range of 55-60%. Wall thickness is measured at the upper limits of normal. Normal left ventricular size. The left atrial size is mildly dilated. Mitral annular calcification is present. [id number] mitral valve regurgitation. Mild thickening of the aortic valve leaflets. Mild to moderate aortic valve regurgitation. There is mild tricuspid valve regurgitation. The estimated pulmonary arterial pressure is 24.4 mmHg. BP: 122 / 65 HR: Rhythm: Sinus MEASUREMENTS (Male / Female) Normal Values Technical Quality:Fair 2D ECHO LV Diastolic Diameter PLAX 5.0 cm 4.2 - 5.9 / 3.9 - 5.3 cm LV Systolic Diameter PLAX 3.7 cm IVS Diastolic Thickness 1.0 cm 0.6 - 1.0 / 0.6 - 0.9 cm LVPW Diastolic Thickness 0.9 cm 0.6 - 1.0 / 0.6 - 0.9 cm LV Relative Wall Thickness 0.4 RV Internal Dim ED PLAX 3.2 cm LVOT Diameter 2.3 cm LA Systolic Diameter LX 3.8 cm 3.0 - 4.0 / 2.7 - 3.8 cm LA Volume Index 33.6 cm/m 16 - 28 cm/m M-MODE Aortic Root Diameter MM 3.1 cm LA Systolic Diameter MM 4.0 cm LA Ao Ratio MM 1.3 AV Cusp Separation MM 2.2 cm DOPPLER AV Peak Velocity 130.0 cm/s AV Peak Gradient 6.8 mmHg AI Peak Velocity 427.7 cm/s AI Peak Gradient 73.2 mmHg AI Pressure Half Time 489.5 ms LVOT Peak Velocity 89.9 cm/s LVOT Peak Gradient 3.2 mmHg AV Area Cont Eq pk 2.9 cm MV Area PHT 3.3 cm Mitral E Point Velocity 43.4 cm/s Mitral A Point Velocity 49.0 cm/s Mitral E to A Ratio 0.9 LV E' Lateral Velocity 12.3 cm/s Mitral E to LV E' Lateral Ratio 3.5 LV E' Septal Velocity 7.4 cm/s Mitral E to LV E' Septal Ratio 5.9 TR Peak Velocity 189.7 cm/s TR Peak Gradient 14.4 mmHg Right Atrial Pressure 10.0 mmHg Pulmonary Artery Systolic Pressu 24.4 mmHg Right Ventricular Systolic Press 24.4 mmHg FINDINGS LEFT VENTRICLE The left ventricular systolic function is normal with an estimated ejection fraction in the range of 55-60%. Wall thickness is measured at the upper limits of normal. Normal left ventricular size. RIGHT VENTRICLE Normal right ventricular size and systolic function. LEFT ATRIUM The left atrial size is mildly dilated. RIGHT ATRIUM The right atrial size is normal. ATRIAL SEPTUM Normal atrial septal thickness without atrial level shunting by limited color doppler interrogation. AORTA The aortic root and proximal ascending aorta are normal in size on limited imaging. MITRAL VALVE Mitral annular calcification is present. Vbhtf-lo-wrrk mitral valve regurgitation. AORTIC VALVE Trileaflet aortic valve. Mild thickening of the aortic valve leaflets. Mild aortic valve regurgitation. TRICUSPID VALVE Structurally normal tricuspid valve. There is mild tricuspid valve regurgitation. The estimated pulmonary arterial pressure is 24.4 mmHg. PULMONARY VALVE No pulmonary valve regurgitation or stenosis. VESSELS The inferior vena cava is normal in size. PERICARDIUM No pericardial effusion. Beck Valverde MD, FACC, FSCAI (Electronically Signed) Final Date:06 February 2018 11:58
--- NOTE | 2018-02-06 16:50 | HHI.GIFU ---
Subjective Remarks Pt has not had BM since colonoscopy Denies nausea, vomiting, abdominal pain States did have mild abdominal cramping after colonoscopy (Amrita Agee) Objective Vitals I&O Vital Signs Date Time Temp Pulse Resp B/P (MAP) Pulse Ox O2 Delivery O2 Flow Rate FiO2 02/06/18 15:00 98.9 77 16 129/78 (95) 98 02/06/18 14:00 66 02/06/18 13:00 75 02/06/18 12:00 69 02/06/18 11:00 68 02/06/18 11:00 98.6 67 16 123/74 (90) 96 02/06/18 10:00 86 02/06/18 09:00 78 02/06/18 08:00 70 02/06/18 07:29 98.6 74 16 126/74 (91) 98 02/06/18 07:00 69 02/06/18 05:00 71 02/06/18 04:00 70 02/06/18 03:00 98.9 73 18 122/65 (84) 97 02/06/18 03:00 69 02/06/18 02:00 68 02/06/18 01:00 72 02/06/18 00:00 66 02/05/18 23:00 98.7 74 16 110/72 (85) 99 02/05/18 23:00 74 02/05/18 22:00 80 02/05/18 21:00 75 02/05/18 20:00 75 02/05/18 19:00 98.4 73 18 109/68 (82) 97 02/05/18 19:00 73 02/05/18 18:39 139/95 (110) 02/05/18 18:00 80 02/05/18 17:00 84 I/O 02/05/18 02/05/18 02/05/18 02/06/18 02/06/18 02/06/18 07:00 15:00 23:00 07:00 15:00 23:00 Intake Total 1960 ml 1000 ml 1720 ml Output Total 850 ml Balance 1960 ml 150 ml 1720 ml Intake Oral 960 ml 900 ml 720 ml IV Total 1000 ml 100 ml 1000 ml Output Urine Total 850 ml # Voids 12 1 5 # Bowel Movements 12 2 2 Laboratory Laboratory Tests Test 02/06/18 05:41 02/06/18 13:40 White Blood Count 8.1 Red Blood Count 4.25 Hemoglobin 12.9 Hematocrit 38.9 Mean Corpuscular Volume 91.5 Mean Corpuscular Hemoglobin 30.3 Mean Corpuscular Hemoglobin Concent 33.1 Red Cell Distribution Width 13.5 Platelet Count 193 Mean Platelet Volume 11.2 Thyroid Stimulating Hormone 3rd Gen 9.670 Date/Time Source Procedure Growth Status 02/04/18 20:30 Stool Stool Cryptosporidium Exam Pending Received 02/04/18 20:30 Stool Stool Giardia Antigen (AYDEE) Pending Received Physical Exam HEENT: Normocephalic; atraumatic CHEST: Even/unlabored CARDIAC: RRR ABDOMEN: Soft, nondistended, nontender; bowel sounds active EXTREMITIES: No clubbing, cyanosis, or edema. SKIN: Normal; no rash; no jaundice. ANDROID SOFTWARE ENGINEER: No focal deficits; alert and oriented times three. (Amrita Agee) Assessment and Plan Plan Assessment: - Hematochezia- began early Sunday morning- blood seemed to be increasing with diarrhea- last episode at 4 am this morning. H/H stable. Denies history of GIB, blood thinners, history of C. Diff, recent abx, recent travel, sick contacts, weight loss. Last colonoscopy 5-7 years ago, states normal exam CT abdomen and pelvis W/O IV contrast (02/03) --> Thickening of the mid and distal aspect of the transverse colon, likely secondary to colitis. Colonic diverticula in the descending and sigmoid regions without associated inflammatory change. - Nausea, vomiting- began at same time as diarrhea, last episode yesterday afternoon - Abdominal pain- lower and cramping, worse prior to BMs, now associated with excessive flatus - Dysphagia- Chronic- has been told it is secondary to her nodular thyroid, followed by endocrinology. Last EGD 25-30 years ago, normal exam - Low grade fevers at home- states around 100 (+) chills - Acid reflux- Well controlled with Omeprazole - Reports of a-fib RVR at ER in [place]- now NSR after cardizem gtt - CT findings of low density mass on right kidney- ?cyst - per attending - Impaired renal function- per attending (02/06) --> Pt denies BM since colonoscopy yesterday. Colonoscopy --> acute colitis probably ischemic. Biopsy pending. H/H stable. OK to DC from a GI standpoint with follow up with GI in office. Plan: Colon biopsy pending Probiotics High fiber diet OK to DC from a GI standpoint Have pt follow up with GI after DC Pt has been seen and examined by myself and Dr. Conley and this note is written on his behalf (Amrita Agee) Physician Comments Patient seen and examined Agree with above Continue with current supportive care Monitor labs Follow-up with GI post discharge We will sign off (Yahir Conley MD) Amrita Agee Feb 06, 2018 16:50 Yahir Conley MD Feb 06, 2018 21:11
--- NOTE | 2018-02-06 16:54 | HHI.DS ---
Discharge Summary Admission Date Feb 03, 2018 at 22:01 Discharge Date: Feb 07, 2018 Admitting Diagnosis colitis GI bleed ,arrhythmia (1) Abdominal pain Diagnosis: Principal ICD Codes: R10.9 - Unspecified abdominal pain Status: Acute (2) Blood in stool Diagnosis: Principal ICD Codes: K92.1 - Melena Status: Acute (3) COPD (chronic obstructive pulmonary disease) Diagnosis: Secondary ICD Codes: J44.9 - Chronic obstructive pulmonary disease, unspecified Status: Chronic (4) Hypertension Diagnosis: Secondary ICD Codes: I10 - Essential (primary) hypertension Status: Chronic Consultants Dr. Conley, GI Dr. Damico, Cardiology Procedures Colonoscopy 02/05/18 Brief History 58-year-old female with history of hypertension and COPD presents emergency department for evaluation of acute onset lower abdominal pain and cramping this morning with associated hematochezia. Patient has been nauseous and vomiting as well. Pain is moderate in severity, worse prior to bowel movement. Patient denies any history of colitis or diverticulitis. No history of trauma. Denies any fever or chills. Patient does take aspirin daily, no other anticoagulation therapy. She has no other symptoms to report at this time. Patient was noted to have significant irregular heart rate ? atrail fib started in er in [place] on Cardiazem bolus and then drip which converted to sinus ,alos had CT scan showed thick transverse colon consistent with colitis. Patient sent for admission. Patient has been feeling good up to today. CBC/BMP: 02/06/18 0541 02/04/18 0553 Significant Findings Laboratory Tests Test 02/04/18 05:53 02/04/18 20:30 02/05/18 08:05 02/06/18 05:41 Mean Platelet Volume 11.2 FL (7.0-11.0) 11.2 FL (7.0-11.0) Neutrophils (%) (Auto) 79.8 % (16.0-70.0) 78.8 % (16.0-70.0) Neutrophils # (Auto) 8.6 TH/MM3 (1.8-7.7) 8.3 TH/MM3 (1.8-7.7) Random Glucose 122 MG/DL (74-106) Calcium Level 8.3 MG/DL (8.5-10.1) Aspartate Amino Transf (AST/SGOT) 10 U/L (15-37) Chloride Level 108 MEQ/L (98-107) Estimat Glomerular Filtration Rate 86 ML/MIN (>89) Test 02/06/18 13:40 Thyroid Stimulating Hormone 3rd Gen 9.670 uIU/ML (0.358-3.740) PE at Discharge General: NAD, AAOx3 Chest: CTA Cardiac: Regular Abd: +BS, soft ND/NT Ext: No edema Hospital Course Abdominal pain N/V/D GIB/Bloody diarrhea - comgmt with GI - Pt is a 58 y/o female with COPD who presented to [facility] in [place] with complaints of lower abdominal pain, nausea, vomiting, and hematochezia which began early childhood coordinator on 02/03. - Pt reportedly went out to eat Sunday night had shrimp, then woke up at 3 am with severe lower abdominal pain and started having diarrhea and shortly after also began vomiting. - The diarrhea became increasingly bloody, last episode was around 4 am on . - CT Abd/pelvis without IV contrast (02/03/18) --> Thickening of the mid and distal aspect of the transverse colon, likely secondary to colitis, colonic diverticula in the descending and sigmoid regions without associated inflammatory change, 2.3cm low-density mass at the lateral right kidney likely related to a cyst although is nonspecific on the noncontrasted CT examination - Pt was started on Protonix 40mg IV daily - Colonoscopy (02/05) --> findings c/w ischemic colitis - patient will need to follow up with GI as an outpatient - C. Dif negative, other stool studies pending - levaquin - IVFs, stop 02/06 - IV Protonix - supportive care - DVT prophylaxis GERD, chronic - PPI Arrhythmia - Pt had reported episode of possible a-fib RVR at ER in [place] and was given IV Cardizem - Pt developed A. Flutter with RVR which resolved with 5mg IV metoprolol. Cardiology consulted feel that the patient has been experiencing SVT - TSH (02/04) 2.670, recheck () 9.670, recommend repeat as outpatient - start PO metoprolol 12.5mg BID, cardiology increased to 25 mg PO BID - 2D echocardiogram: The left ventricular systolic function is normal with an estimated ejection fraction in the range of 55-60%. Wall thickness is measured at the upper limits of normal. Normal left ventricular size. The left atrial size is mildly dilated. Mitral annular calcification is present. [id number] mitral valve regurgitation. Mild thickening of the aortic valve leaflets. Mild to moderate aortic valve regurgitation. There is mild tricuspid valve regurgitation. The estimated pulmonary arterial pressure is 24.4 mmHg. - obtain holter - request Cardiology consult - Patient will need to follow up with cardiology as an outpatient COPD, chronic - Cont. home meds, Singulair, Symbicort, ProAir PRN HTN, chronic - Pt reportedly takes Lisinopril 20mg at home, this has been continued - BP more stable today Hypothyroidism, chronic - Pt is on Synthroid 100mcg daily Hyperlipidemia, chronic - Pt is on Simvastatin 40mg HS Abnormal CT findings of low density mass on right kidney ?cyst - Pt will need outpt followup with her PCP for monitoring. Pt Condition on Discharge: Stable Discharge Disposition: Discharge Home Discharge Instructions DIET: Follow Instructions for: Heart Healthy Diet Activities you can perform: Regular-No Restrictions Follow up Referrals: Cardiology - [address] Jiménez Gastroenterology - 2 Weeks with Yahir Conley MD PCP Follow-up - [address] Hernandez New Medications: Lisinopril (Lisinopril) 10 Mg Tab 10 MG PO DAILY for Blood pressure, #30 TAB 0 Refills Metoprolol Tartrate (Metoprolol Tartrate) 25 Mg Tab 25 MG PO Q12HR for heart rate/ blood pressure, #60 TAB 0 Refills Continued Medications: Albuterol 18 GM Inh (Ventolin Hfa 18 GM Inh) 90 Mcg/Act Aer 2 PUFF INH Q4-6H PRN for SHORTNESS OF BREATH, #1 INHALER 0 Refills Diazepam (Valium) 5 Mg Tab 5 MG PO TID PRN for ANXIETY, TAB 0 Refills Fluticasone-Salmeterol Inh (Advair Diskus Inh) 250-50 Mcg/Blist Aer 1 PUFF INH BID, #1 INHALER 0 Refills Rinse mouth after use. Levothyroxine (Synthroid) 100 Mcg Tab 100 MCG PO DAILY for Thyroid, #30 TAB 0 Refills Loratadine-Pseudoephedrine 24 HR (Claritin-D 24 HR) 10-240 Mg Tab 1 TAB PO DAILY for Allergy Management, TAB 0 Refills Montelukast (Singulair) 10 Mg Tab 10 MG PO HS, #30 TAB 0 Refills Omeprazole Magnesium (Prilosec) 20 Mg Tab Simvastatin (Simvastatin) 40 Mg Tab 40 MG PO HS for Cholesterol Management, #30 TAB 0 Refills Discontinued Medications: Diclofenac Sodium (Voltaren-Xr) 100 Mg Tab.er.24h Lisinopril (Lisinopril) 20 Mg Tab 20 MG PO DAILY, #30 TAB 0 Refills Additional Information Patient examined. Assessment and plan formulated with Erika Ruelas PA-C. I agree with the above. Erika Ruelas Feb 06, 2018 16:54 Christ Sanabria DO Feb 12, 2018 13:17
[2018-02-06] MEDS ORDERED: LEVA500T33 PO (17:16)
--- NOTE | 2018-02-06 17:42 | HHI.PR ---
Subjective Remarks Patient reports abd pain improving able to tolerate PO intake without N/V/D Patient continues to have episodes of, "heart pounding, " palpitation like sensation. Objective Vitals Vital Signs Date Time Temp Pulse Resp B/P (MAP) Pulse Ox O2 Delivery O2 Flow Rate FiO2 02/06/18 15:00 98.9 77 16 129/78 (95) 98 02/06/18 14:00 66 02/06/18 13:00 75 02/06/18 12:00 69 02/06/18 11:00 68 02/06/18 11:00 98.6 67 16 123/74 (90) 96 02/06/18 10:00 86 02/06/18 09:00 78 02/06/18 08:00 70 02/06/18 07:29 98.6 74 16 126/74 (91) 98 02/06/18 07:00 69 02/06/18 05:00 71 02/06/18 04:00 70 02/06/18 03:00 98.9 73 18 122/65 (84) 97 02/06/18 03:00 69 02/06/18 02:00 68 02/06/18 01:00 72 02/06/18 00:00 66 02/05/18 23:00 98.7 74 16 110/72 (85) 99 02/05/18 23:00 74 02/05/18 22:00 80 02/05/18 21:00 75 02/05/18 20:00 75 02/05/18 19:00 98.4 73 18 109/68 (82) 97 02/05/18 19:00 73 02/05/18 18:39 139/95 (110) 02/05/18 18:00 80 Result Diagram: 02/06/18 0541 02/04/18 0553 Other Results Laboratory Tests Test 02/04/18 05:53 02/04/18 20:30 02/05/18 08:05 02/06/18 05:41 White Blood Count 10.7 TH/MM3 10.5 TH/MM3 8.1 TH/MM3 Red Blood Count 4.29 MIL/MM3 4.44 MIL/MM3 4.25 MIL/MM3 Hemoglobin 13.1 GM/DL 13.5 GM/DL 12.9 GM/DL Hematocrit 39.0 % 39.9 % 38.9 % Mean Corpuscular Volume 91.0 FL 89.9 FL 91.5 FL Mean Corpuscular Hemoglobin 30.6 PG 30.4 PG 30.3 PG Mean Corpuscular Hemoglobin Concent 33.6 % 33.9 % 33.1 % Red Cell Distribution Width 13.6 % 13.1 % 13.5 % Platelet Count 191 TH/MM3 201 TH/MM3 193 TH/MM3 Mean Platelet Volume 11.2 FL 10.4 FL 11.2 FL Neutrophils (%) (Auto) 79.8 % 78.8 % Lymphocytes (%) (Auto) 12.6 % 13.6 % Monocytes (%) (Auto) 6.2 % 5.5 % Eosinophils (%) (Auto) 1.1 % 1.7 % Basophils (%) (Auto) 0.3 % 0.4 % Neutrophils # (Auto) 8.6 TH/MM3 8.3 TH/MM3 Lymphocytes # (Auto) 1.3 TH/MM3 1.4 TH/MM3 Monocytes # (Auto) 0.7 TH/MM3 0.6 TH/MM3 Eosinophils # (Auto) 0.1 TH/MM3 0.2 TH/MM3 Basophils # (Auto) 0.0 TH/MM3 0.0 TH/MM3 CBC Comment DIFF FINAL DIFF FINAL Differential Comment Blood Urea Nitrogen 8 MG/DL Creatinine 0.70 MG/DL Random Glucose 122 MG/DL Total Protein 6.6 GM/DL Albumin 3.5 GM/DL Calcium Level 8.3 MG/DL Alkaline Phosphatase 47 U/L Aspartate Amino Transf (AST/SGOT) 10 U/L Alanine Aminotransferase (ALT/SGPT) 19 U/L Total Bilirubin 0.8 MG/DL Sodium Level 142 MEQ/L Potassium Level 4.0 MEQ/L Chloride Level 108 MEQ/L Carbon Dioxide Level 26.7 MEQ/L Anion Gap 7 MEQ/L Estimat Glomerular Filtration Rate 86 ML/MIN Thyroid Stimulating Hormone 3rd Gen 2.670 uIU/ML Stool C. difficile Toxin (PCR) NEGATIVE Stl C. difficile Toxin Epiderm 027 PRESUMPTIVE NEGATIVE Test 02/06/18 13:40 Thyroid Stimulating Hormone 3rd Gen 9.670 uIU/ML Imaging CT Abd/pelvis without IV contrast (02/03/18): - Thickening of the mid and distal aspect of the transverse colon. This is likely secondary to colitis - Colonic diverticula in the descending and sigmoid regions without associated inflammatory change. - 2.3cm low-density mass at the lateral right kidney likely related to a cyst although is nonspecific on the noncontrasted CT examination Objective Remarks General: NAD, AAOx3 Chest: CTA Cardiac: Regular Abd: +BS, soft ND/NT Ext: No edema Procedures Colonoscopy 02/05/18 A/P Problem List: (1) Abdominal pain ICD Codes: R10.9 - Unspecified abdominal pain Status: Acute Plan: Abdominal pain N/V/D GIB/Bloody diarrhea - comgmt with GI - Pt is a 58 y/o female with COPD who presented to [facility] in [place] with complaints of lower abdominal pain, nausea, vomiting, and hematochezia 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 - Pt reportedly went out to eat Sunday night had shrimp, then woke up at 3 am with severe lower abdominal pain and started having diarrhea and shortly after also began vomiting. - The diarrhea became increasingly bloody, last episode was around 4 am on . - CT Abd/pelvis without IV contrast (02/03/18) --> Thickening of the mid and distal aspect of the transverse colon, likely secondary to colitis, colonic diverticula in the descending and sigmoid regions without associated inflammatory change, 2.3cm low-density mass at the lateral right kidney likely related to a cyst although is nonspecific on the noncontrasted CT examination - Pt was started on Protonix 40mg IV daily - Colonoscopy (02/05) --> findings c/w ischemic colitis - C. 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 - Pt reportedly went out to eat Sunday night had shrimp, then woke up at 3 am with severe lower abdominal pain and started having diarrhea and shortly after also began vomiting. - The diarrhea became increasingly bloody, last episode was around 4 am on . - CT Abd/pelvis without IV contrast (02/03/18) --> Thickening of the mid and distal aspect of the transverse colon, likely secondary to colitis, colonic diverticula in the descending and sigmoid regions without associated inflammatory change, 2.3cm low-density mass at the lateral right kidney likely related to a cyst although is nonspecific on the noncontrasted CT examination - Pt was started on Protonix 40mg IV daily - Colonoscopy (02/05) --> findings c/w ischemic colitis - patient will need to follow up with GI as an outpatient - C. Dif negative, other stool studies pending - levaquin - IVFs, stop 02/06 - IV Protonix - supportive care - DVT prophylaxis GERD, chronic - PPI Arrhythmia - Pt had reported episode of possible a-fib RVR at ER in [place] and was given IV Cardizem - Pt developed A. Flutter with RVR which resolved with 5mg IV metoprolol. Cardiology consulted feel that the patient has been experiencing SVT - TSH (02/04) 2.670, recheck () 9.670, recommend repeat in 3 weeks as outpatient - start PO metoprolol 12.5mg BID, cardiology increased to 25 mg PO BID - 2D echocardiogram: The left ventricular systolic function is normal with an estimated ejection fraction in the range of 55-60%. Wall thickness is measured at the upper limits of normal. Normal left ventricular size. The left atrial size is mildly dilated. Mitral annular calcification is present. [id number] mitral valve regurgitation. Mild thickening of the aortic valve leaflets. Mild to moderate aortic valve regurgitation. There is mild tricuspid valve regurgitation. The estimated pulmonary arterial pressure is 24.4 mmHg. - Holter completed results pending - request Cardiology consult - Patient will need to follow up with cardiology as an outpatient - Patient with continued palpitations will continue to monitor overnight on telemetry COPD, chronic - Cont. home meds, Singulair, Symbicort, ProAir PRN HTN, chronic - Pt reportedly takes Lisinopril 20mg at home, this has been continued - BP more stable today Hypothyroidism, chronic - Pt is on Synthroid 100mcg daily Hyperlipidemia, chronic - Pt is on Simvastatin 40mg HS Abnormal CT findings of low density mass on right kidney ?cyst - Pt will need outpt followup with her PCP for monitoring. (2) Blood in stool ICD Codes: K92.1 - Melena Status: Acute Plan: - see above (3) COPD (chronic obstructive pulmonary disease) ICD Codes: J44.9 - Chronic obstructive pulmonary disease, unspecified Status: Chronic (4) Hypertension ICD Codes: I10 - Essential (primary) hypertension Status: Chronic Assessment and Plan Patient examined. Assessment and plan formulated with Erika Ruelas PA-C. I agree with the above. Problem Qualifiers (1) Abdominal pain: Qualified Codes: R10.9 - Unspecified abdominal pain (2) COPD (chronic obstructive pulmonary disease): (3) Hypertension: Qualified Codes: I10 - Essential (primary) hypertension Erika Ruelas Feb 06, 2018 17:41 Christ Sanabria DO Feb 12, 2018 13:17
[2018-02-06] MEDS: PANTOPRAZOLE SODIUM 40 MG VIAL IV PUSH SCH (21:51)
--- NOTE | 2018-02-06 23:11 | EKG ---
Date Performed: 02/05/2018 Time Performed: 07:49:18 PTAGE: 58 years EKG: Atrial flutter with rapid ventricular response with 2:1 A-V block. Extensive ST-T changes m ay be due to myocardial ischemia Abnormal ECG Compared to PREVIOUS TRACING , SR no longer present DOCTOR: Rox Cook Interpretating Date/Time 02/06/2018 23:10:18
[2018-02-07] VITALS (12 sets, daily range): BP systolic 108–129; BP diastolic 66–68; PULSE 58–84; RESP 16; TEMP 97.4–98.2; O2SAT 97
--- NOTE | 2018-02-07 08:07 | PD.CARD.PN ---
Subjective Subjective Remarks Feels well. No further tachycardic episodes. Tolerating metoprolol well. Objective Medications Current Medications Medications (Trade) Dose Ordered Sig/Jhoana Route Start Time Stop Time Status Last Admin (Proair Hfa Inh) 2 puff Q6HR NEB PRN INH 02/03/18 22:45 (Valium) 5 mg TID PRN PO 02/03/18 22:45 (Synthroid) 100 mcg DAILY@0600 PO 02/04/18 06:00 02/06/18 05:34 (Symbicort 160-4.5 Mcg Inh) 1 puff BID INH 02/04/18 09:00 02/06/18 21:52 (NS Flush) 2 ml UNSCH PRN IV FLUSH 02/03/18 22:45 (NS Flush) 2 ml BID IV FLUSH 02/04/18 09:00 02/06/18 21:51 (Zofran Inj) 4 mg Q6H PRN IVP 02/03/18 22:45 (Narcan Inj) 0.4 mg UNSCH PRN IV PUSH 02/03/18 22:45 (Francia-Colace) 1 tab BID PO 02/04/18 09:00 02/06/18 09:11 (Milk Of Magnesia Liq) 30 ml Q12H PRN PO 02/03/18 22:45 (Senokot) 17.2 mg Q12H PRN PO 02/03/18 22:45 (Dulcolax Supp) 10 mg DAILY PRN RECTAL 02/03/18 22:45 (Lactulose Liq) 30 ml DAILY PRN PO 02/03/18 22:45 (Protonix Inj) 40 mg Q24H IV PUSH 02/03/18 23:00 02/06/18 21:51 (Carson 5-325 Mg) 1 tab Q6H PRN PO 02/04/18 15:45 02/05/18 15:08 Lactated Ringer's 1,000 ml @ 30 mls/hr Q24H PRN IV 02/04/18 22:45 02/07/18 22:44 Sodium Chloride 500 ml @ 30 mls/hr [id number] PRN IV 02/04/18 22:45 02/07/18 22:44 (Chlorhexidine 2% Cloth) 3 pack PEN AND PENCIL REPAIRER PRN TOPICAL 02/04/18 22:45 02/07/18 22:44 (Levaquin) 500 mg DAILY PO 02/06/18 09:00 02/06/18 09:10 (Singulair) 10 mg DAILY PO 02/06/18 09:00 02/06/18 09:10 (Lopressor) 25 mg Q12HR PO 02/06/18 09:00 02/06/18 21:51 (Prinivil) 10 mg DAILY PO 02/06/18 09:00 02/06/18 09:10 Vital Signs / I&O Vital Signs Date Time Temp Pulse Resp B/P (MAP) Pulse Ox O2 Delivery O2 Flow Rate FiO2 02/07/18 06:00 66 02/07/18 05:00 58 02/07/18 04:00 79 02/07/18 03:00 62 02/07/18 03:00 98.2 62 16 129/68 (88) 97 02/07/18 02:00 66 02/07/18 01:00 68 02/07/18 00:00 70 02/06/18 23:00 98.5 78 20 154/92 (112) 98 02/06/18 23:00 78 02/06/18 22:00 82 02/06/18 21:00 70 02/06/18 20:00 68 02/06/18 19:00 98.3 72 18 101/51 (68) 98 02/06/18 19:00 72 02/06/18 18:00 68 02/06/18 17:00 68 02/06/18 16:00 66 02/06/18 15:00 98.9 77 16 129/78 (95) 98 02/06/18 15:00 74 02/06/18 14:00 66 02/06/18 13:00 75 02/06/18 12:00 69 02/06/18 11:00 68 02/06/18 11:00 98.6 67 16 123/74 (90) 96 02/06/18 10:00 86 02/06/18 09:00 78 I/O 02/06/18 02/06/18 02/06/18 02/07/18 02/07/18 02/07/18 07:00 15:00 23:00 07:00 15:00 23:00 Intake Total 1720 ml 720 ml 600 ml Output Total 1200 ml 750 ml Balance 1720 ml -480 ml -150 ml Intake Oral 720 ml 720 ml 600 ml IV Total 1000 ml Output Urine Total 1200 ml 750 ml # Voids 5 # Bowel Movements 2 Laboratory Laboratory Tests Test 02/06/18 13:40 Thyroid Stimulating Hormone 3rd Gen 9.670 uIU/ML Assessment and Plan Assessment and Plan Stable CV. Will sign off Yovanny Damico MD Feb 07, 2018 08:07
[2018-02-07] MEDS: LEVOTHYROXINE SODIUM 100 MCG TAB PO SCH (08:20)
[2018-02-07] MEDS: LISINOPRIL 10 MG TAB PO SCH (09:23)
[2018-02-07] MEDS: MONTELUKAST SODIUM 10 MG TAB PO SCH (09:23)
[2018-02-07] MEDS: LEVOFLOXACIN 500 MG TAB PO SCH (09:23)
[2018-02-07] MEDS: DOCUSATE SODIUM 50 MG/SENNA 8.6 MG TAB PO SCH (09:23)
[2018-02-07] MEDS: METOPROLOL TARTRATE 25 MG TAB PO SCH (09:23)
[2018-02-07] MEDS: BUDESONIDE-FORMOTEROL 160/4.5 MCG INHALER INH SCH (09:27)
[2018-02-07] MEDS: SODIUM CHLORIDE 0.9% FLUSH 10 ML FLUSH IV FLUSH SCH (09:27)
--- NOTE | 2018-02-07 14:38 | HM ---
Date Performed: 02/05/2018 Time Performed: 18:06:00 HOOKUP DATE: 02/05/18 06:06:00 PM Tue ANALYSIS START TIME: 02/05/2018 6:11:00 PM ANALYSIS END TIME: 02/06/2018 4:49:59 PM PATIENT AGE: 58 PATIENT HEIGHT: 65 PATIENT WEIGHT: 181 DRUG LIST: ROOM # [id number] A PATIENT DIAGNOSIS: SINUS TACHYCARDIA TEST NARRATIVE: The patient's average heart rate was 76 BPM. Heart rates greater than 120 B PM were noted 1% of the time. No episodes of bradycardia were noted. No pauses exceeding 2.0 sec onds were noted. 1 ventricular ectopics, which represented < 1% of the total beat count, were not ed. The highest ventricular ectopic frequency occurred from 11:00 AM to 12:00 PM Wed. During this t daily 1 VE(s) occurred. Ventricular ectopics were observed as 1 isolated beat(s) only. No couplets or runs were noted. 75 supraventricular ectopics, which represented < 1% of the total beat count, w ere noted. The highest supraventricular ectopic frequency occurred from 11:00 PM to 12:00 AM Wed. D uring this time 48 SVE(s) occurred. No episodes of ST depression (defined as -1.0 mm or more) wer e noted in channel 1. No episodes of ST depression (defined as -1.0 mm or more) were noted in channe l 2. No episodes of ST depression (defined as -1.0 mm or more) were noted in channel 3. TEST INTERPRETATION: The patient is predominantly in Sinus rhythm with an average heart rate of 76 and a peak heart rate of 56. There is only 1 PVC. There are no isol ated PACs but there are 5 runs of SVT, the longest run was 48 beats at a rate of 125 at 11:54 pm, fas test run was 6 beats at a rate of 145 bpm at 09:15. The runs of SVT are irregular, cannot exclude pos sibility that these short runs could be short runs of atrial fibrillation. CONCLUSIONS: Sinus rhythm throughout the recording but with 5 runs of SVT, longest of which was 48 beats at a rate of 125, can not exclude possible short runs of atrial fibrillation Signed by : Sage Montiel
== END 2018-02-07 12:38 | disposition home or self-care (01) | DRG 394 ==
LOC: NEDDLT 21:51 → HCIS 22:01
PROVIDERS: ADMIT Hospitalist; ATTEND Hospitalist
PROC: 0DBM8ZX Excision of Descending Colon, Via Natural or Artificial Opening Endoscopic, Diagnostic (ICD-10-PCS; principal; 2018-02-05 11:51)
DX: K55.032 Diffuse acute (reversible) ischemia of large intestine (principal); K92.1 Melena; I47.1 Supraventricular tachycardia; R13.10 Dysphagia, unspecified; I48.92 Unspecified atrial flutter; I08.3 Combined rheumatic disorders of mitral, aortic and tricuspid valves; I10 Essential (primary) hypertension; K57.30 Diverticulosis of large intestine without perforation or abscess without bleeding; I48.91 Unspecified atrial fibrillation; J44.9 Chronic obstructive pulmonary disease, unspecified; E04.2 Nontoxic multinodular goiter; K21.9 Gastro-esophageal reflux disease without esophagitis; N28.89 Other specified disorders of kidney and ureter; E78.5 Hyperlipidemia, unspecified; E03.9 Hypothyroidism, unspecified; Z79.82 Long term (current) use of aspirin
CPT/HCPCS: 74176; 80053; 81001; 82272; 82550; 84443; 84484; 85025; 85027; 85610; 85730; 87328; 87329; 87493; 87506; 88305; 93005; 93225; 93226; 93306; 96361; 96374; 96375; C9113; J1956; J2405; J7030